=== PATIENT | female | born 1985 | race African-American/Black ===

== ENCOUNTER 2016-05-09 01:52 | Emergency (ER) | payer MEDICAID ==
[~2016-05-09] VITALS: Ht 157.5 cm; Wt 60.8 kg
[2016-05-09 02:40] LABS: APPEARANCE,URINE CLEAR; KETONES,URINE NEGATIVE (NEGATIVE); LEUKOCYTE ESTERASE ,URINE NEGATIVE (NEGATIVE); NITRITE,URINE NEGATIVE (NEGATIVE); PH,URINE 8 (4.5-8.0); PROTEIN,URINE NEGATIVE (NEGATIVE); UROBILINOGEN,URINE NORMAL MG/DL (0.0-1.0)
--- NOTE | 2016-05-09 03:11 | Emergency Room Report ---
History of Present Illness General Chief Complaint: Vaginal Source: Patient Present Illness HPI Patient presents with complaints of vaginal spotting She noticed some spotting earlier this evening and was concerning came to the ER Denies any abdominal pain Denies any back or flank pain denies any chest pain or shortness of breath Patient is approximately 16 weeks Reports that she has had to change of BUSINESS ADMINISTRATION [employer]GRAM [employer]AIR physicians and has not had ultrasound as of yet Patient is a with a miscarriage last year Allergies: Coded Allergies: No Known Allergies (Unverified , 05/09/16) Patient History Past Medical History: see triage record Pertinent Family History: none Last Menstrual Period: Now: Yes - 16 weeks : 2 Para: 1 Reviewed Nursing Documentation: PMH: Agreed, PSxH: Agreed Nursing Documentation-PMH Past Medical History: No Stated History Review of Systems All Other Systems: negative except mentioned in HPI Physical Exam Vital Signs Date Time Temp Pulse Resp B/P Pulse Ox O2 Delivery O2 Flow Rate FiO2 05/09/16 01:57 98.4 98 18 122/80 100 Room Air Sp02 EP Interpretation: reviewed, normal General Appearance: well appearing, no apparent distress Head: normocephalic, atraumatic Eyes: bilateral eye EOMI, bilateral eye PERRL ENT: hearing grossly normal, normal pharynx, TMs + canals normal, uvula midline Neck: full range of motion, supple, no meningismus, no bony tend Respiratory: lungs clear, normal breath sounds, no rhonchi, no respiratory distress, no retraction, no accessory muscle use Cardiovascular #1: normal peripheral pulses, regular rate, rhythm, no edema, no gallop, no JVD, no murmur Gastrointestinal: normal bowel sounds, no organomegaly, no guarding, no hernia , no pulsatile mass, no rebound, other - abdomen is palpable Genitourinary: no CVA tenderness Musculoskeletal: normal inspection Neurologic: oriented x3, responsive, loan and credit manager III-XII nml as tested, motor strength/ tone normal, sensory intact Psychiatric: mood/affect normal Skin: normal color, no rash, warm/dry, palpation normal Lymphatic: normal inspection, no adenopathy Medical Decision Making Diagnostic Impression: Primary Impression: threatened miscarriage ER Course Multiple differentials are considered Patient's urine sample does not show any evidence of blood or infection Patient had bedside ultrasound nonofficial ultrasound performed It reveals intrauterine heart tone approximately 140 At this time patient was discussed regarding threatened miscarriage and the need for close outpatient followup bedrest Labs Test 05/09/16 02:20 Urine Color Pale yellow Urine Appearance Clear Urine pH 8 (4.5-8.0) Urine Specific [place] 1.015 (1.005-1.035) Urine Protein Negative (NEGATIVE) Urine Glucose (UA) Negative (NEGATIVE) Urine Ketones Negative (NEGATIVE) Urine Occult Blood Negative (NEGATIVE) Urine Nitrite Negative (NEGATIVE) Urine Bilirubin Negative (NEGATIVE) Urine Urobilinogen Normal MG/DL (0.0-1.0) Urine Leukocyte Esterase Negative (NEGATIVE) CT/MRI/US Diagnostic Results CT/MRI/US Diagnostic Results : Impression Bedside nonofficial abdominal ultrasound: Intrauterine , heart tone 140 Last Vital Signs Date Time Temp Pulse Resp B/P Pulse Ox O2 Delivery O2 Flow Rate FiO2 05/09/16 01:57 98.4 98 18 122/80 100 Room Air Status: improved Disposition: HOME, SELF-CARE Condition: Improved Referrals: NOT CHOSEN IPA/MD,REFERRING (PCP) Patient Instructions: Threatened Miscarriage Additional Instructions: Patient is provided with the discharge instructions notified to follow up with primary doctor in the next 2-3 days otherwise return to the er with any worsening symptoms. Please note that this report is being documented using [employer] technology. This can lead to erroneous entry secondary to incorrect interpretation by the dictating instrument. MATI CALDERON D.O. May 09, 2016 03:11
[2016-05-09 03:19] VITALS: BP 116/74
[2016-05-09 03:21] VITALS: BP 116/74
== END 2016-05-09 03:25 | disposition home or self-care (01) ==
LOC: EMR 02:24
DX: O20.0 Threatened abortion (principal); Z3A.16 16 weeks gestation of pregnancy
CPT/HCPCS: 81003; 99284

== ENCOUNTER 2016-06-04 15:35 | Emergency (ER) | payer MEDICAID ==
[~2016-06-04] VITALS: Ht 160 cm; Wt 68.0 kg
[2016-06-04 16:33] LABS: KETONES,URINE NEGATIVE (NEGATIVE); LEUKOCYTE ESTERASE ,URINE 1+ (NEGATIVE); NITRITE,URINE NEGATIVE (NEGATIVE); PH,URINE 6.5 (4.5-8.0); PROTEIN,URINE 1+ (NEGATIVE); UROBILINOGEN,URINE NORMAL MG/DL (0.0-1.0)
[2016-06-04 17:00] LABS: APPEARANCE,URINE SLIGHTLY CLOUDY
[2016-06-04 17:01] LABS: BACTERIA,URINE FEW /HPF; RBC,URINE 0-2 /HPF (0 - 2); SQUAMOUS EPITHELIAL CELL,UR MANY /LPF (NONE/OCC)
[2016-06-04 18:41] VITALS: BP 95/57
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
== END 2016-06-04 18:46 | disposition home or self-care (01) ==
LOC: EMR 16:36
DX: O20.0 Threatened abortion (principal); O26.892 Other specified pregnancy related conditions, second trimester; Z3A.00 Weeks of gestation of pregnancy not specified; Y04.2XXA Assault by strike against or bumped into by another person, initial encounter; Y92.9 Unspecified place or not applicable
CPT/HCPCS: 76700; 76805; 76815; 81003; 99284

== ENCOUNTER 2016-08-04 04:46 | Emergency (ER) | payer MEDICAID ==
[~2016-08-04] VITALS: Ht 157.5 cm; Wt 68.0 kg
[2016-08-04 04:55] VITALS: BP 122/81
[2016-08-04] MEDS ORDERED: PRENATAL VITAM1 EACH PO (04:55)
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
[2016-08-04 05:24] LABS: APPEARANCE,URINE CLEAR; KETONES,URINE NEGATIVE (NEGATIVE); LEUKOCYTE ESTERASE ,URINE NEGATIVE (NEGATIVE); NITRITE,URINE NEGATIVE (NEGATIVE); PH,URINE 7 (4.5-8.0); PROTEIN,URINE NEGATIVE (NEGATIVE); UROBILINOGEN,URINE NORMAL MG/DL (0.0-1.0)
[2016-08-04 06:00] VITALS: BP 118/76
== END 2016-08-04 06:05 | disposition home or self-care (01) ==
LOC: EMR 05:07
DX: R10.32 Left lower quadrant pain (principal); O26.93 Pregnancy related conditions, unspecified, third trimester; Z3A.00 Weeks of gestation of pregnancy not specified
CPT/HCPCS: 81003; 99282

== ENCOUNTER 2016-08-21 01:32 | Emergency (ER) | payer MEDICAID ==
[~2016-08-21] VITALS: Ht 157.5 cm; Wt 72.6 kg
[~2016-08-21 01:32] MED LIST: PRENATAL VITAM1 EACH PO
[2016-08-21 01:40] VITALS: BP 122/87
--- NOTE | 2016-08-21 02:01 | Emergency Room Report ---
History of Present Illness General Chief Complaint: Vaginal Source: Patient Present Illness HPI Patient presents with complaints of diffuse abdominal cramping Ongoing for the past several hours Patient had increased nausea denies any vomiting or diarrhea Denies any chest pain or shortness of breath Denies any flank pain Patient reports approximately 27 week Denies any vaginal spotting or gush of fluids Allergies: Coded Allergies: No Known Allergies (Unverified , 08/21/16) Patient History Past Medical History: see triage record Pertinent Family History: none Last Menstrual Period: unk Now: Yes - 27 weeks : 1 Para: 0 Reviewed Nursing Documentation: PMH: Agreed, PSxH: Agreed Nursing Documentation-PMH Past Medical History: No Stated History Review of Systems All Other Systems: negative except mentioned in HPI Physical Exam Vital Signs Date Time Temp Pulse Resp B/P Pulse Ox O2 Delivery O2 Flow Rate FiO2 08/21/16 01:36 98.2 107 16 122/87 98 Room Air Sp02 EP Interpretation: reviewed, normal General Appearance: well appearing, no apparent distress Head: normocephalic, atraumatic Eyes: bilateral eye EOMI, bilateral eye PERRL ENT: hearing grossly normal, normal pharynx, TMs + canals normal, uvula midline Neck: full range of motion, supple, no meningismus, no bony tend Respiratory: lungs clear, normal breath sounds, no rhonchi, no respiratory distress, no retraction, no accessory muscle use Cardiovascular #1: normal peripheral pulses, regular rate, rhythm, no edema, no gallop, no JVD, no murmur Gastrointestinal: normal bowel sounds, non tender, no hernia, no pulsatile mass , no rebound, other - abdomen palpated Genitourinary: no CVA tenderness Musculoskeletal: normal inspection Neurologic: oriented x3, responsive, battery wrecker operator III-XII nml as tested, motor strength/ tone normal, sensory intact Psychiatric: mood/affect normal Skin: normal color, no rash, warm/dry, palpation normal Lymphatic: normal inspection, no adenopathy Medical Decision Making Diagnostic Impression: Primary Impression: Abdominal pain affecting ER Course Multiple differentials considered including but not limited to, labor, false labor, UTI Other intra-abdominal pathology Patient however on reevaluation reports that the cramping had subsided heart tones are at 120 beats Patient's urine sample was clear At this time we do not have access to labor and delivery However given the patient's resolution is appropriate for close outpatient followup Patient will followup with tertiary center with [facility] services if pain recurs Labs Test 08/21/16 01:30 Urine Color Yellow Urine Appearance Clear Urine pH 6.5 (4.5-8.0) Urine Specific [place] 1.020 (1.005-1.035) Urine Protein Negative (NEGATIVE) Urine Glucose (UA) Negative (NEGATIVE) Urine Ketones Negative (NEGATIVE) Urine Occult Blood Negative (NEGATIVE) Urine Nitrite Negative (NEGATIVE) Urine Bilirubin Negative (NEGATIVE) Urine Urobilinogen 1 MG/DL (0.0-1.0) Urine Leukocyte Esterase Negative (NEGATIVE) Last Vital Signs Date Time Temp Pulse Resp B/P Pulse Ox O2 Delivery O2 Flow Rate FiO2 08/21/16 01:36 98.2 107 16 122/87 98 Room Air Status: improved Disposition: HOME, SELF-CARE Condition: Improved Additional Instructions: Patient is provided with the discharge instructions notified to follow up with primary doctor in the next 2-3 days otherwise return to the er with any worsening symptoms. Please note that this report is being documented using [employer] technology. This can lead to erroneous entry secondary to incorrect interpretation by the dictating instrument. MATI CALDERON D.O. Aug 21, 2016 02:01
[2016-08-21 02:08] LABS: APPEARANCE,URINE CLEAR; KETONES,URINE NEGATIVE (NEGATIVE); LEUKOCYTE ESTERASE ,URINE NEGATIVE (NEGATIVE); NITRITE,URINE NEGATIVE (NEGATIVE); PH,URINE 6.5 (4.5-8.0); PROTEIN,URINE NEGATIVE (NEGATIVE); UROBILINOGEN,URINE 1 MG/DL (0.0-1.0)
[2016-08-21 02:40] VITALS: BP 118/81
== END 2016-08-21 02:40 | disposition home or self-care (01) ==
LOC: EMR 02:03
DX: O26.892 Other specified pregnancy related conditions, second trimester (principal); Z3A.27 27 weeks gestation of pregnancy; R10.9 Unspecified abdominal pain
CPT/HCPCS: 81003; 99284

== ENCOUNTER 2020-01-11 00:22 | Emergency (ER) | payer MEDICAID ==
[~2020-01-11] VITALS: Ht 154.9 cm; Wt 40.8 kg
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
[2020-01-11 00:36] VITALS: BP_SYST 80
[2020-01-11] MEDS ORDERED: AUGMENTIN 875-1 EAC1 ORAL (00:56)
[2020-01-11] MEDS ORDERED: IBUPROFEN600 M1 ORAL (00:56)
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
[2020-01-11 01:00] VITALS: BP 121/82
--- NOTE | 2020-01-11 01:00 | NUR ---
ER DISCHARGE NOTE: Patient is cleared to be discharged per ERMD, pt is aox4, on room air, with stable vital signs. pt was given dc and prescription instructions, pt was able to verbalize understanding, pt id band removed. pt is able to ambulate with steady gait. pt took all belongings.
== END 2020-01-11 01:00 | disposition home or self-care (01) ==
LOC: EMR 00:30
DX: H61.21 Impacted cerumen, right ear (principal); S21.259A Open bite of unspecified back wall of thorax without penetration into thoracic cavity, initial encounter; Y04.1XXA Assault by human bite, initial encounter; Y92.9 Unspecified place or not applicable; K02.9 Dental caries, unspecified
CPT/HCPCS: 69209; Z7502; 99282